=== PATIENT | female | born 1930 | race African-American/Black ===

== ENCOUNTER 2017-11-01 10:38 | Observation (INO) | payer MEDICARE, MEDICAID ==
--- NOTE | 2017-11-01 12:12 | RAD ---
AP CHEST: Indication: Altered mental status. Comparison: 07-28-15 FINDINGS: There is stable moderate cardiomegaly. There is mild pulmonary vascular congestion. No confluent airs pace opacity or pleural effusion is evident. No acute osseous abnormality is evident. IMPRESSION: Moderate cardiomegaly with mild pulmonary vascular congestion. POS: [facility]
--- NOTE | 2017-11-01 12:16 | CT ---
CT BRAIN WITHOUT CONTRAST: INDICATIONS: History of altered mental status. COMPARISON: None. FINDINGS: There is moderate chronic small vessel white matter ischemic change. There is mild generalized cereb ral atrophy. The septum pellucidum and third ventricle are midline. The skull and extracranial soft tissues appear within normal limits. There is mild mucosal thickening of the ethmoid air cells. IMPRESSION: 1. No acute intracranial abnormality. 2. Moderate chronic small vessel white matter ischemic change. 3. Age related atrophy. POS: [facility]
[2017-11-01 12:23] LABS: #Lymphocytes 1.4 thou/uL (1.20-3.40); #Monocytes 1.7 thou/uL (0.11-0.59); #Neutrophils 9.7 thou/uL (1.40-6.50); %Basophils 0.2 % (0.0-1.0); %Eosinophils 0.2 % (0.0-10.0); %Lymphocytes 11.1 % (21.0-51.0); %Monocytes 13.5 % (0.0-10.0); Hemoglobin 11.5 g/dL (12.0-16.0); Mean Corpuscular HGB CONC 30.4 g/dL (32.0-36.0); Mean Corpuscular Hemoglobin 24.9 pg (27.0-31.0); Mean Platelet Volume 9.4 fL (7.4-10.4); Platelet Count 226 thou/uL (130-400); RBC Distribution Width 15.4 % (11.5-14.5); Red Blood Cell (RBC) Count 4.62 mill/uL (4.20-5.40); White Blood Cell (WBC) Count 12.9 thou/uL (4.8-10.8)
[2017-11-01 12:25] LABS: PTT 43.9 SEC (22.9-36.1); Prothrombin Time 31.4 SEC (12.0-14.7)
[2017-11-01 12:46] LABS: ALT (SGPT) 18 U/L (8-55); AST (SGOT) 15 U/L (5-34); Albumin 3.9 g/dL (3.4-4.8); Alkaline Phosphatase 76 U/L (40-150); Anion Gap 17 mmol/L (10-20); BUN (Urea Nitrogen) 16 mg/dL (9.8-20.1); Bilirubin, Total 1.3 mg/dL (0.2-1.2); Calc. Creatinine Clearance 0 mL/min (70-130); Calcium 9.8 mg/dL (7.8-10.44); Carbon Dioxide 18 mmol/L (23-31); Chloride 105 mmol/L (98-107); Estimated GFR-MDRD 67; Globulin 4.3 g/dL (2.4-3.5); Glucose 127 mg/dL (83-110); Potassium 3.6 mmol/L (3.5-5.1); Protein, Total 8.2 g/dL (6.0-8.3); Sodium 136 mmol/L (136-145)
--- NOTE | 2017-11-01 12:46 | RAD ---
LEFT WRIST THREE VIEWS: INDICATIONS: Altered mental status. Left wrist pain. FINDINGS: There is diffuse osteopenia. There is chondrocalcinosis within the TFC. There is severe first CMC o steoarthrosis. There is mild STT osteoarthrosis. No acute fracture or subluxation is evident. IMPRESSION: 1. No acute fracture or subluxation. 2. Diffuse osteopenia. 3. Chondrocalcinosis can be seen with calcium pyrophosphate deposition disease. 4. Advanced osteoarthrosis of the first carpometacarpal. POS: [facility]
[2017-11-01 12:47] LABS: Troponin I Less than 0.010 ng/mL (< 0.028)
[2017-11-01 12:49] LABS: Bilirubin Small (Negative); Blood, Urine Small (Negative); Clarity CLEAR (Clear); Glucose, Urine (Dipstick) Negative (Negative); Leukocyte Trace (Negative); Nitrite Negative (Negative); Protein, Urine (Dipstick) 100 mg/dL (Neg-Trace); Specific Gravity, Urine 1.025 (1.002-1.036)
[2017-11-01 12:56] LABS: Bacteria/HPF None Seen HPF (None Seen); Hyaline Casts/LPF 7-10 HYALINE CAST LPF (0-3 Hyaline); Pathc Cast-AUWi Flag 1.74 (0-2.49); Squamous Epithelial 0-3 HPF (0-3); WBC/HPF 0-3 HPF (0-3)
[2017-11-01 13:04] LABS: Digoxin 0.39 ng/mL (0.8-2.0)
[2017-11-01] MEDS ORDERED: Lidocaine 1% PF 5 ML VIAL ONE (16:15)
--- NOTE | 2017-11-01 16:44 | HP ---
PRIMARY CARE PROVIDER: Dav Neves MD CHIEF COMPLAINT: Referred to the [facility] Service by [facility] for al tered mental status and failure to thrive. HISTORY OF PRESENT ILLNESS: The patient states that she is feeling okay now. She states she had primo e aches and pains in her back and shoulder when she first came in. The ER record notes that she was oriented to person and place. With me, she was oriented to person, place and year. EMS had related that her home was filthy and smelled of propane and she was inappropriately dressed. She lives alone , is single and gives me no other history. PAST MEDICAL HISTORY: Hypertension, atrial fibrillation, chronic anticoagulation. CURRENT MEDICATIONS: Digoxin 125 mcg a day, metoprolol 25 mg twice a day, warfarin 3 mg a day, amlod ipine 5 mg a day. ALLERGIES: QUINOLONES/CIPRO. PAST SURGICAL HISTORY: She states she has none, has never had surgery, however, history and physical by Dr. Fatou Torres 2 years ago notes that she has had a hysterectomy. FAMILY HISTORY: Both parents , both parents had strokes and hypertension. Her mother had co ronary artery disease. 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 No tobacco since she was young. No alcohol, no illicit drugs. REVIEW OF SYSTEMS: She denies any fever, chills, sweats, dizziness, fainting, headache. Eyes: She wears glasses. No double vision, blurred vision, flashing lights. Ear, Nose and Throat: No ear talya n or drainage. No nasal bleeding. No trouble swallowing. Cardiac: No chest pain, orthopnea or par oxysmal nocturnal dyspnea. Respiratory: No cough, wheezing or asthma. Gastrointestinal: No nausea , vomiting, diarrhea, melena. Genitourinary: No hematuria, dysuria. Neurologic: No history of str okes, seizures. Psychiatric: No history of anxiety, depression. Skin: No history of bruises, blee ding or rash. Heme/Lymph: No tender or swollen lumps under skin, under arms, neck, or groin. PHYSICAL EXAMINATION: HEME/LYMPH: She appears sleepy, but easily aroused. As I said before, oriented. VITAL SIGNS: Blood pressure 157/76, pulse 91, respirations 22. Pain on admission to the ER was 8. She says she has no pain now. O2 sat is 95 on room air. HEAD, EYES, EARS, NOSE AND THROAT: Reveal pupils equal and round. She has bilateral arcus, sclerae white. Extraocular movements are intact. Tympanic membranes are clear. Nose is clear. Oral mucous membranes are wet with multiple missing teeth, especially uppers. NECK: No jugular venous distention, adenopathy or thyromegaly. CHEST: Clear to auscultation and percussion. HEART: Had regular rate and rhythm. No murmurs, no gallops were appreciated. ABDOMEN: Soft, bowel sounds are normal. There is no hepatosplenomegaly, no mass, no rebound, no bru its. EXTREMITIES: Reveal no cyanosis, clubbing or edema. PULSES: Carotid, radial, femoral, and dorsalis pedis pulses intact. SKIN: Warm and dry. No bruises. No rash. HEME/LYMPH: No tender or swollen lymph nodes in the axilla, inguinal, or cervical area. NEUROLOGIC: Cranial nerves II-XII are intact. Moves all extremities. Deep tendon reflexes symmetri c. Toes are downgoing. EKG reveals atrial fibrillation with some nonspecific ST-T abnormality, reviewed by me. Chest x-ray reveals no infiltrate, CHF or cardiomegaly, reviewed by me. CT scan of the brain reveals no acute intracranial abnormality, reviewed by me. LABORATORY AND X-RAY FINDINGS: INR is 3.0. Urine has 4-6 red cells, 0-3 white cells. Complete meta bolic profile shows a C-reactive protein of 1807. BNP of 224, bilirubin 1.3, AST 15, ALT 18. Basic metabolic profile shows only CO2 of 18. CBC had a mild elevation of white count of 12.9, hemoglobin 11.5, platelet count 226,000. ADMITTING DIAGNOSES: 1. Altered mental status. 2. Aches and pains. 3. Atrial fibrillation. 4. Hypertension. 5. Chronic anticoagulation, therapeutic. PLAN: CBC and basic metabolic profile will be repeated in the morning. Blood and urine cultures hav e been drawn. Rocephin has been started. She will be placed in the hospital on observation basis.
[2017-11-01 19:15] LABS: Body Fluid Source SYNOVIAL FLUID; Tube # 1
[2017-11-01 19:16] LABS: BF Color Yellow; Clarity Cloudy/Turbid (Clear)
[2017-11-01 19:17] LABS: RBC Background Count 0.003
[2017-11-01 19:18] LABS: RBC Count-Automated 27000 /cumm; WBC/NonHematic-Auto 21600 /cumm
[2017-11-01 20:21] LABS: BF Segmented Neutrophils 90 %; Cell Count Non Hematic 8 %; Lymphocytes 1 %
[2017-11-01] MEDS ORDERED: Ondansetron ODT 4 MG TAB SL PRN (20:22)
[2017-11-01] MEDS ORDERED: Acetaminophen 325 MG TAB PO PRN (20:22)
[2017-11-01] MEDS ORDERED: Ondansetron HCl/PF 4 MG/2 ML Vial IVP PRN ×2 (20:22→20:30)
[2017-11-01 20:39] VITALS: BMI 23.8
[2017-11-01] MEDS: cefTRIAXone\\ROCEPHIN 1 GM in Sodium Chloride 0.9% 100 ML IVPB SCH (23:45)
[2017-11-01] MEDS: Sodium Chloride 0.9% 1,000 ML IV SCH (23:46)
[2017-11-02 08:13] LABS: #Lymphocytes 1.2 thou/uL (1.20-3.40); #Monocytes 1.4 thou/uL (0.11-0.59); #Neutrophils 8.4 thou/uL (1.40-6.50); %Basophils 0.3 % (0.0-1.0); %Eosinophils 0.1 % (0.0-10.0); %Lymphocytes 10.5 % (21.0-51.0); %Monocytes 12.4 % (0.0-10.0); %Neutrophils 76.8 % (42.0-75.0); Hemoglobin 11.1 g/dL (12.0-16.0); Mean Corpuscular HGB CONC 32.4 g/dL (32.0-36.0); Mean Corpuscular Hemoglobin 26.4 pg (27.0-31.0); Mean Corpuscular Volume 81.6 fL (78.0-98.0); Mean Platelet Volume 9.1 fL (7.4-10.4); Platelet Count 261 thou/uL (130-400); RBC Distribution Width 15.2 % (11.5-14.5); Red Blood Cell (RBC) Count 4.22 mill/uL (4.20-5.40); White Blood Cell (WBC) Count 10.9 thou/uL (4.8-10.8)
[2017-11-02 08:30] LABS: Anion Gap 13 mmol/L (10-20); BUN (Urea Nitrogen) 11 mg/dL (9.8-20.1); Calc. Creatinine Clearance 51 mL/min (70-130); Calcium 8.7 mg/dL (7.8-10.44); Carbon Dioxide 20 mmol/L (23-31); Chloride 106 mmol/L (98-107); Estimated GFR-MDRD 90; Glucose 95 mg/dL (83-110); Sodium 136 mmol/L (136-145)
[2017-11-02] MEDS: Sodium Chloride 0.9% 1,000 ML IV SCH ×2 (08:30→18:26)
[2017-11-02] MEDS: Acetaminophen 325 MG TAB PO PRN (08:30)
--- NOTE | 2017-11-02 08:46 | PDOC.PN ---
- Subjective Encounter Start Date: 11/02/17 Encounter Start Time: 08:44 Subjective: alert, oriented, aches and pains - Objective Resuscitation Status: Resuscitation Status FULL:Full Resuscitation MAR Reviewed: Yes Vital Signs & Weight: Vital Signs (12 hours) Temp Pulse Resp BP BP Pulse Ox 11/02/17 08:00 100.3 F H 101 H 18 136/65 100 11/02/17 04:00 98.9 F 96 16 142/67 H 100 11/01/17 22:30 98 F 85 18 155/67 H 100 Weight Weight 134 lb Result Diagrams: 11/02/17 07:59 11/02/17 07:59 Phys Exam - Physical Examination Neck: no JVD Respiratory: clear to auscultation bilateral Cardiovascular: RRR, no significant murmur Gastrointestinal: soft, positive bowel sounds Musculoskeletal: no edema Dx/Plan (1) Altered mental state Code(s): R41.82 - ALTERED MENTAL STATUS, UNSPECIFIED Status: Acute Qualifiers: Altered mental status type: unspecified Qualified Code(s): R41.82 - Altered mental status, unspecified (2) Leukocytosis Code(s): D72.829 - ELEVATED WHITE BLOOD CELL COUNT, UNSPECIFIED Status: Acute Qualifiers: Leukocytosis type: unspecified Qualified Code(s): D72.829 - Elevated white blood cell count, unspecified (3) Atrial fibrillation with controlled ventricular response Code(s): I48.91 - UNSPECIFIED ATRIAL FIBRILLATION Status: Chronic (4) Chronic anticoagulation Code(s): Z79.01 - CLAIM MANAGER (CURRENT) USE OF ANTICOAGULANTS Status: Chronic (5) HTN (hypertension) Code(s): I10 - ESSENTIAL (PRIMARY) HYPERTENSION Status: Chronic Qualifiers: Hypertension type: essential hypertension Qualified Code(s): I10 - Essential (primary) hypertension - Plan alert, oriented -: low grade tomas, cultures pending, cont rocephin -: cont home meds * .
[2017-11-02] MEDS ORDERED: Enoxaparin Sodium 40 MG/0.4 ML SYRINGE SC SCH (09:00)
[2017-11-02] MEDS ORDERED: Prevnar 13-Val Conj/PF 0.5 ML SYRINGE IM ONE (09:00)
[2017-11-02] MEDS ORDERED: Warfarin Sodium 3 MG TAB PO SCH ×2 (09:00→17:00)
[2017-11-02] MEDS: Digoxin 0.125 MG TAB PO SCH (11:09)
[2017-11-02] MEDS: Amlodipine 5 MG TAB PO SCH (11:10)
[2017-11-02] MEDS: cefTRIAXone\\ROCEPHIN 1 GM in Sodium Chloride 0.9% 100 ML IVPB SCH (21:19)
[2017-11-03] MEDS: Sodium Chloride 0.9% 1,000 ML IV SCH (03:02)
[2017-11-03 07:53] VITALS: TEMP 99.2
[2017-11-03] MEDS: Digoxin 0.125 MG TAB PO SCH (08:42)
[2017-11-03] MEDS: Amlodipine 5 MG TAB PO SCH (08:42)
[2017-11-03] MEDS: Acetaminophen 325 MG TAB PO PRN (08:43)
--- NOTE | 2017-11-03 08:54 | PDOC.PN ---
- Subjective Encounter Start Date: 11/03/17 Encounter Start Time: 08:52 Subjective: alert, oriented , aches in shoulders - Objective Resuscitation Status: Resuscitation Status FULL:Full Resuscitation Vital Signs & Weight: Vital Signs (12 hours) Temp Pulse Resp BP BP Pulse Ox 11/03/17 08:42 98 148/67 H 11/03/17 07:27 99.2 F 98 20 148/67 H 100 11/03/17 04:00 97.8 F 80 20 135/81 100 Weight Weight 134 lb 9.6 oz I&O: 11/02/17 11/03/17 11/04/17 06:59 06:59 06:59 Intake Total 3116 Output Total 200 Balance 2916 Result Diagrams: 11/02/17 07:59 11/02/17 07:59 Phys Exam - Physical Examination Neck: no JVD Respiratory: clear to auscultation bilateral Cardiovascular: RRR, no significant murmur Gastrointestinal: soft, positive bowel sounds Musculoskeletal: no edema Neurological: non-focal Dx/Plan (1) Altered mental state Code(s): R41.82 - ALTERED MENTAL STATUS, UNSPECIFIED Status: Ruled-out Qualifiers: Altered mental status type: unspecified Qualified Code(s): R41.82 - Altered mental status, unspecified (2) Leukocytosis Code(s): D72.829 - ELEVATED WHITE BLOOD CELL COUNT, UNSPECIFIED Status: Resolved Qualifiers: Leukocytosis type: unspecified Qualified Code(s): D72.829 - Elevated white blood cell count, unspecified (3) Atrial fibrillation with controlled ventricular response Code(s): I48.91 - UNSPECIFIED ATRIAL FIBRILLATION Status: Chronic (4) Chronic anticoagulation Code(s): Z79.01 - DATAPOWER DEVELOPER (CURRENT) USE OF ANTICOAGULANTS Status: Chronic (5) HTN (hypertension) Code(s): I10 - ESSENTIAL (PRIMARY) HYPERTENSION Status: Chronic Qualifiers: Hypertension type: essential hypertension Qualified Code(s): I10 - Essential (primary) hypertension - Plan REHAB screen -: C&S neg- DC antibx -: PT/INR pending * .
[2017-11-03 09:12] LABS: INR-International Normal Ratio 2.4; Prothrombin Time 26.5 SEC (12.0-14.7)
--- NOTE | 2017-11-03 11:00 | DIS ---
TRANSFER OF CARE NOTE PRIMARY CARE PROVIDER: Dr. Dav Neves DATE OF ADMISSION: 11/01/2017 DATE OF DISCHARGE: 11/03/2017 DISCHARGE DISPOSITION: Discharged to [facility]. FINAL DIAGNOSES: 1. Suspected altered mental status 2. Unspecified atrial fibrillation. 3. Essential hypertension. 4. 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 DISCHARGE MEDICATIONS: Amlodipine 5 mg a day, warfarin 3 mg a day, metoprolol 25 mg twice a day, dig oxin 0.125 mg a day. ALLERGIES: CIPRO. DIET: Diet as tolerated. CODE STATUS: FULL. PENDING AT THE TIME OF DISCHARGE: Nothing. HOSPITAL COURSE: The patient taken to [facility] for aches and pains according to the p atient. The EMS reported that her living conditions were deplorable. She was transferred to [facility] with a diagnosis of altered mental status and referred to [facility] Hospitalist Service with the glynn arnold. She was oriented when I first saw her, has remained oriented, appropriate. Her studies included a brain CT which demonstrated no acute abnormality. Chest x-ray, no cardiomegaly, CHF or infiltrate. LABORATORY DATA: Initial INR was 3.0, follow up today is 2.4. Initial white count was 12.9, follow up 10.9 with a normal distribution, hemoglobin 11.5, 11.1, platelet count 226,000. Follow up 261,000 . Initial comp metabolic profile abnormalities; bilirubin 1.3, glucose 127, CO2 18. Follow up CO2 2 0. Urine was clear. An aspiration of her knee was done in the emergency room. Cultures from her urine, her knee and bloo d are negative to date. She was initially treated with an antibiotic empirically, which has been dis continued. Aspiration on her knee was done in the emergency room by the emergency room physician. T he patient has had no hot, tender or swollen knee on my exam. She is alert, oriented. Cardiorespira tory exam is normal. She has been accepted under the care of Dr. Dav Neves to the [facility] and is being transferred there at this time. She was continued on her home medicines. She will need PT, OT if possible. She will need serial PT/INR on an every 2-[address] Neves. CONSULTATIONS: No consultations were obtained. PROCEDURES: No procedures were done.
[2017-11-03] MEDS ORDERED: Potassium Chloride 20 MEQ TAB PO SCH (12:15)
[2017-11-03 14:16] VITALS: BP 113/55
== END 2017-11-03 14:10 ==
LOC: ERS 10:38 → T4-A 15:40 → 2NO 22:43
PROVIDERS: ADMIT Internal Medicine; ATTEND Internal Medicine
DX: R41.82 Altered mental status, unspecified (principal); D72.829 Elevated white blood cell count, unspecified; I48.91 Unspecified atrial fibrillation; I10 Essential (primary) hypertension; Z79.01 Long term (current) use of anticoagulants; Z88.1 Allergy status to other antibiotic agents; Z79.899 Other long term (current) drug therapy
CPT/HCPCS: 20610; 36415; 36416; 51701; 70450; 71045; 80048; 80053; 80162; 81003; 81015; 82553; 82945; 83880; 84484; 85025; 85060; 85610; 85652; 85730; 86140; 87040; 87070; 87086; 87205; 89051; 89060; 90471; 90670; 93005; 96360; 96361; 96365; 96372; A4216; A4353; G0009; G0378; G8978-GP-CM; G8979-GP-CK; G8987-GO-CN; G8988-GO-CK; J0696; J1650; J2001; J7050

== ENCOUNTER 2017-11-05 16:48 | Inpatient (IN) | payer MEDICARE, MEDICAID ==
[~2017-11-05 16:48] MED LIST: ISOVUE-370 76%-LOCM 1 ML ONE
[2017-11-05 17:26] LABS: Bilirubin Moderate (Negative); Blood, Urine Small (Negative); Glucose, Urine (Dipstick) Negative (Negative); Leukocyte Negative (Negative); Nitrite Negative (Negative); Protein, Urine (Dipstick) 30 mg/dL (Neg-Trace); Urobilinogen > or = 8.0 mg/dL (0.2-1.0); pH, Urine 6.5 (5.0-9.0)
[2017-11-05 17:27] LABS: Clarity Clear (Clear)
[2017-11-05 17:30] LABS: Bacteria/HPF Rare-Few HPF (None Seen); Hyaline Casts/LPF NONE SEEN LPF (0-3 Hyaline); RBC/HPF 0-3 HPF (0-3); Squamous Epithelial 0-3 HPF (0-3); WBC/HPF 0-3 HPF (0-3)
--- NOTE | 2017-11-05 17:59 | RAD ---
CHEST ONE VIEW: 11/05/17 HISTORY: Altered mental status. COMPARISON: 11/01/17 FINDINGS: The cardiac silhouette is magnified and upper limits of normal in size. Pulmonary vasculature is uppe r limits of normal. Mediastinum is midline with aortic calcification. No lobar consolidation or evide nce of pneumothorax. IMPRESSION: Chronic type findings are stable. No active cardiopulmonary abnormalities are demonstrated. POS: [facility]
[2017-11-05] MEDS ORDERED: Acetaminophen 650 MG Suppository ONE (18:28)
[2017-11-05 18:31] LABS: #Eosinphils 0.1 thou/uL (0.0-0.7); #Lymphocytes 1.7 thou/uL (1.20-3.40); #Monocytes 1.9 thou/uL (0.11-0.59); #Neutrophils 9.9 thou/uL (1.40-6.50); %Basophils 0.1 % (0.0-1.0); %Eosinophils 0.5 % (0.0-10.0); %Lymphocytes 12.4 % (21.0-51.0); %Neutrophils 72.9 % (42.0-75.0); Hemoglobin 11.2 g/dL (12.0-16.0); Mean Corpuscular HGB CONC 32.4 g/dL (32.0-36.0); Mean Corpuscular Hemoglobin 26.3 pg (27.0-31.0); Mean Corpuscular Volume 81.3 fL (78.0-98.0); Mean Platelet Volume 8.2 fL (7.4-10.4); Platelet Count 324 thou/uL (130-400); RBC Distribution Width 15.9 % (11.5-14.5); Red Blood Cell (RBC) Count 4.23 mill/uL (4.20-5.40); White Blood Cell (WBC) Count 13.6 thou/uL (4.8-10.8)
[2017-11-05] MEDS ORDERED: Piperacillin/Tazobactam 4.5 GM VIAL ONE (18:37)
[2017-11-05 18:51] LABS: ALT (SGPT) 64 U/L (8-55); AST (SGOT) 106 U/L (5-34); Albumin 2.9 g/dL (3.4-4.8); Alkaline Phosphatase 174 U/L (40-150); Anion Gap 14 mmol/L (10-20); BUN (Urea Nitrogen) 17 mg/dL (9.8-20.1); Bilirubin, Total 1.9 mg/dL (0.2-1.2); Calc. Creatinine Clearance 0 mL/min (70-130); Calcium 9.1 mg/dL (7.8-10.44); Carbon Dioxide 23 mmol/L (23-31); Chloride 103 mmol/L (98-107); Estimated GFR-MDRD 85; Globulin 4.2 g/dL (2.4-3.5); Glucose 142 mg/dL (83-110); Potassium 3.7 mmol/L (3.5-5.1); Protein, Total 7.1 g/dL (6.0-8.3); Sodium 136 mmol/L (136-145)
--- NOTE | 2017-11-05 19:11 | CT ---
CT CHEST WITH IV CONTRAST CT ABDOMEN AND PELVIS WITH IV CONTRAST 11/05/17 HISTORY: Fever. Tachypnea. Chest and abdomen pain. COMPARISON: 07/28/15. FINDINGS: Mild scarring at the lung bases. Bovine origin of the great vessels at the aortic arch. No mediastina l adenopathy. No focal parenchymal lung infiltrate. Small hiatal hernia. Calcification within the art erial structures. Postoperative changes at the central mesentery. Nonspecific lymph nodes are scatter ed throughout the abdomen. Urinary bladder is unremarkable. Lack of oral contrast limits evaluation of the bowel. No evidence of obstruction. Prominent degenerat jacque changes lumbar spine. IMPRESSION: Atherosclerosis. Incidental type findings as detailed above. No acute abnormalities are demonstrated to explain the patient's symptoms. POS: [facility]
[2017-11-05 20:00] LABS: Digoxin 0.73 ng/mL (0.8-2.0)
--- NOTE | 2017-11-05 20:58 | ULT ---
SONOGRAM RIGHT UPPER QUADRANT: 11/05/17 HISTORY: Right upper quadrant pain. Abnormal liver function tests. FINDINGS: Gallbladder has a normal appearance without evidence of stones. Common duct is 0.4 cm. Liver unremark able without focal mass or intrahepatic biliary dilatation. No free fluid. IMPRESSION: No significant abnormalities are demonstrated. POS: [facility]
[2017-11-05] MEDS ORDERED: Ondansetron ODT 4 MG TAB SL PRN (22:20)
[2017-11-05] MEDS ORDERED: Ondansetron HCl/PF 4 MG/2 ML Vial IVP PRN (22:20)
[2017-11-05] MEDS ORDERED: Acetaminophen 325 MG TAB PO PRN (22:20)
[2017-11-05 22:53] VITALS: BMI 24.7
[2017-11-05] MEDS ORDERED: traMADol HCl 50 MG TAB PO PRN (23:56)
[2017-11-06] MEDS ORDERED: Bisacodyl 5 MG TAB PO PRN (00:17)
[2017-11-06] MEDS ORDERED: Fleet Enema 133 ML BOT PR PRN (00:17)
[2017-11-06] MEDS ORDERED: Senokot 8.6 MG TAB PO PRN (00:17)
[2017-11-06] MEDS: Acetaminophen 1,000 MG in Premix Bag 1 BAG IVPB PRN ×3 (00:55→21:15)
--- NOTE | 2017-11-06 01:58 | HP ---
CHIEF COMPLAINT: Generalized stiffness and pain. HISTORIAN: The patient's daughter. HISTORY OF PRESENT ILLNESS: This is an 87-year-old female with past medical history of hypertension, atrial fibrillation, history of uterine cancer presenting with chief complaint of generalized weakness and pain. Per patient, on 11/01/2017, the patient was having pain all over and she was not able to turn, move, or get up out of her bed. The patient was then transported to the hospital to be evaluated in the hospital. The patient was worked up and diagnosed with altered mental status, aches and pains, and the patient was discharged on . Now, the patient is being brought back to the hospital due to subjective fevers, generalized muscle aches and pains, and weakness. The family thinks that the patient is having this weakness because the patient probably has a stroke and they are concerned due to this; however, the daughter states that she spoke to a physician who stated that nothing has been found on patient's workup to suggest that the patient has stroke. At this moment, the patient is lying in bed, does not seem to have any complaints. REVIEW OF SYSTEMS: Positive for generalized aches, otherwise as documented in the HPI. All other systems are reviewed and are negative. PAST MEDICAL HISTORY: The patient has past medical history of arrhythmias; atrial fibrillation; hypertension; malignancy, primary site cervical, status post treatment in 2002. FAMILY HISTORY: Reviewed and noncontributory to this visit. PAST SURGICAL HISTORY: Hysterectomy. PSYCHIATRIC HISTORY: There is no previous psychiatric history. SOCIAL HISTORY: The patient denies any alcohol use, smoking, or illicit drug use. ALLERGIES: The patient is allergic to CIPROFLOXACIN, LATEX. MEDICATIONS: The patient is on, 1. Digoxin 125 mcg. 2. Metoprolol tartrate 25 mg. 3. Warfarin 3 mg. 4. Amlodipine 5 mg. PHYSICAL EXAMINATION: VITAL SIGNS: Blood pressure 138/77, pulse 105, respiratory rate is 36, temperature 97, O2 sat 96% on room air. GENERAL: The patient is awake, alert, oriented x2, not in acute distress. The patient is able to speak in full sentences, appears her stated age. HEENT: Normocephalic, atraumatic. Pupils are equally round and reactive to light. Extraocular movements are intact. No scleral icterus. NECK: Supple. Trachea is midline. No tracheal deviation. LUNGS: Clear to auscultation bilaterally. No wheezing, no rales, no rhonchi are appreciated. CARDIOVASCULAR: Positive S1 and S2, tachycardic. ABDOMEN: Bowel sounds are normal. No tenderness, no distention, no pulsatile masses, no peritoneal signs. EXTREMITIES: Upper extremity: The patient has some weakness at the upper extremities, but good pulses at the radial aspect. The patient has some weakness at the lower extremities bilaterally. The patient is not able to lift her lower extremities against gravity. Good dorsalis pulses. NEUROLOGIC: No focal neurologic deficits noted. SKIN: Warm, dry, and intact. PSYCHIATRIC: Awake, alert, oriented x2. Normal affect. EMERGENCY DEPARTMENT COURSE: The patient was given vancomycin and Zosyn, normal saline 1 liter, acetaminophen rectally. IMAGING: CT of the chest showed chronic type findings that are stable. No active cardiopulmonary abnormalities demonstrated. CT abdomen and pelvis showed atherosclerosis, incidental findings of mild scarring at the lung bases, bovine origin of the great vessels at the aortic arch, no acute abnormalities are demonstrated to explain the patient's symptoms. Abdominal ultrasound, no significant abnormalities demonstrated. LABORATORY DATA: WBC 13.6, hemoglobin 11.2, hematocrit 34.4, platelets is 324. Sodium 136, potassium 3.7, chloride 103, carbon dioxide 23, anion gap of 14, BUN 17, creatinine 0.78, glucose 142, lactic acid 1.7, AST 106, ALT 64, T bilirubin 1.9. Urinalysis is negative for nitrite, negative for leukocyte esterase. Digoxin is 0.73. ASSESSMENT AND PLAN: 1. This is an 87-year-old female with multiple comorbidities being admitted to the hospital for generalized aches and weakness, likely due to arthritis. The patient has been started on pain medication. We will follow the patient. We will get palliative consult and we will find outpatient goals of care. 2. Early onset dementia. The patient is currently alert, oriented x2. The patient seems to be very forgetful. Per the family, this is the patient's baseline. 3. Leukocytosis, etiology unclear at this time. We will continue to work the patient up. Currently, all imaging and labs have been negative. We will follow up on morning labs. 4. Atrial fibrillation. We will continue the patient on Coumadin. 5. History of hypertension. We will continue to monitor the patient's blood pressure. 6. History of cervical cancer, currently stable. [facility]
[2017-11-06 06:05] LABS: #Eosinphils 0.2 thou/uL (0.0-0.7); #Lymphocytes 1.4 thou/uL (1.20-3.40); #Monocytes 1.7 thou/uL (0.11-0.59); #Neutrophils 9.3 thou/uL (1.40-6.50); %Basophils 0.1 % (0.0-1.0); %Eosinophils 1.9 % (0.0-10.0); %Monocytes 13.6 % (0.0-10.0); %Neutrophils 73.3 % (42.0-75.0); Hemoglobin 9.6 g/dL (12.0-16.0); Mean Corpuscular HGB CONC 31.3 g/dL (32.0-36.0); Mean Corpuscular Hemoglobin 25.7 pg (27.0-31.0); Mean Corpuscular Volume 82.1 fL (78.0-98.0); Mean Platelet Volume 8.2 fL (7.4-10.4); Platelet Count 287 thou/uL (130-400); RBC Distribution Width 15.4 % (11.5-14.5); Red Blood Cell (RBC) Count 3.74 mill/uL (4.20-5.40); White Blood Cell (WBC) Count 12.6 thou/uL (4.8-10.8)
[2017-11-06 06:06] LABS: ALT (SGPT) 39 U/L (8-55); AST (SGOT) 43 U/L (5-34); Albumin 2.5 g/dL (3.4-4.8); Alkaline Phosphatase 122 U/L (40-150); Anion Gap 11 mmol/L (10-20); BUN (Urea Nitrogen) 14 mg/dL (9.8-20.1); Bilirubin, Total 1.7 mg/dL (0.2-1.2); Calc. Creatinine Clearance 56 mL/min (70-130); Calcium 8.4 mg/dL (7.8-10.44); Carbon Dioxide 21 mmol/L (23-31); Chloride 106 mmol/L (98-107); Estimated GFR-MDRD Greater than 90; Globulin 3.3 g/dL (2.4-3.5); Glucose 120 mg/dL (83-110); Potassium 3.5 mmol/L (3.5-5.1); Protein, Total 5.8 g/dL (6.0-8.3); Sodium 134 mmol/L (136-145)
[2017-11-06] MEDS ORDERED: Heparin 5,000 UNITS/ML VIAL SC SCH (09:00)
[2017-11-06] MEDS: Famotidine/PF 20 mg/2ml Vial SLOW IVP SCH ×2 (09:06→21:05)
[2017-11-06] MEDS: Amlodipine 5 MG TAB PO SCH (09:06)
[2017-11-06] MEDS: Digoxin 0.125 MG TAB PO SCH (09:06)
[2017-11-06] MEDS: Docusate 100 MG CAP PO SCH ×2 (09:06→21:05)
[2017-11-06 15:36] LABS: Hemoglobin 10.6 g/dL (12.0-16.0); Platelet Count 308 thou/uL (130-400)
[2017-11-06] MEDS: Warfarin Sodium 3 MG TAB PO SCH (16:53)
[2017-11-07] MEDS ORDERED: Acetaminophen 325 MG TAB PO PRN (00:13)
[2017-11-07] MEDS ORDERED: Ondansetron ODT 4 MG TAB SL PRN (00:13)
[2017-11-07] MEDS ORDERED: Ondansetron HCl/PF 4 MG/2 ML Vial IVP PRN (00:13)
[2017-11-07] MEDS ORDERED: Acetaminophen 1,000 MG in Premix Bag 1 BAG IVPB PRN (00:15)
[2017-11-07] MEDS ORDERED: Cholestyramine/Aspartame 4 gm Packet PO PRN (00:16)
[2017-11-07 06:03] LABS: Hemoglobin 10.5 g/dL (12.0-16.0); Platelet Count 319 thou/uL (130-400)
[2017-11-07 06:36] LABS: INR-International Normal Ratio 2.8; Prothrombin Time 29.8 SEC (12.0-14.7)
[2017-11-07] MEDS ORDERED: Prevnar 13-Val Conj/PF 0.5 ML SYRINGE IM ONE (09:00)
[2017-11-07] MEDS: Docusate 100 MG CAP PO SCH ×2 (09:04→20:22)
[2017-11-07] MEDS: Amlodipine 5 MG TAB PO SCH (09:04)
[2017-11-07] MEDS: Digoxin 0.125 MG TAB PO SCH (09:04)
[2017-11-07] MEDS: Famotidine/PF 20 mg/2ml Vial SLOW IVP SCH ×2 (09:05→20:21)
--- NOTE | 2017-11-07 15:45 | PDOC.PN ---
- Subjective Encounter Start Date: 11/07/17 Encounter Start Time: 15:35 Subjective: f/u for generalized weakness, AMS after apparently receiving Tylenol #4 -: for fever at the [facility]. Feels fine currently. No new complaints. - Objective Resuscitation Status: Resuscitation Status FULL:Full Resuscitation MAR Reviewed: Yes Vital Signs & Weight: Vital Signs (12 hours) Temp Pulse Resp BP Pulse Ox 11/07/17 11:55 97.4 F L 92 18 126/68 96 11/07/17 07:20 98.5 F 84 16 123/57 L 95 11/07/17 04:50 97.6 F 97 16 154/65 H 96 Weight Weight 135 lb 1.6 oz I&O: 11/06/17 11/07/17 11/08/17 06:59 06:59 06:59 Intake Total 230 862 Balance 230 862 Result Diagrams: 11/07/17 05:14 11/06/17 05:41 Additional Labs: Microbiology 11/07/17 10:28 Stool C. difficile [facility]DH Antigen & Toxins - Final 11/05/17 17:10 Urine Straight Catheter Urine Culture - Final NO GROWTH AT 48 HOURS 11/05/17 18:13 Venous blood - Right Foot Blood Culture - Preliminary NO GROWTH AT 48 HOURS 11/05/17 17:57 Venous blood - Right Hand Blood Culture - Preliminary NO GROWTH AT 48 HOURS Laboratory Tests 11/05/17 11/05/17 11/05/17 18:13 18:13 18:13 WBC 13.6 H INR AST 106 H ALT 64 H Digoxin 0.73 L 11/06/17 11/06/17 11/07/17 05:41 05:41 06:14 WBC 12.6 H INR 2.8 AST 43 H ALT 39 Digoxin Radiology Reviewed by me: Yes (CT Abd/pel - neg for acute process) EKG Reviewed by me: Yes (Tele - A-fib in 60's) Phys Exam - Physical Examination Constitutional: NAD HEENT: PERRLA, sclera anicteric, oral pharynx no lesions Neck: no nodes, no JVD, supple, full ROM Respiratory: no wheezing, no rales, no rhonchi, clear to auscultation bilateral S1, S2 Cardiovascular: no significant murmur, no rub, irregular Gastrointestinal: soft, non-tender, no distention, positive bowel sounds Musculoskeletal: no edema, pulses present Neurological: moves all 4 limbs A x O x 2 Skin: normal turgor, cap refill <2 seconds Dx/Plan (1) Toxic metabolic encephalopathy Code(s): G92 - TOXIC ENCEPHALOPATHY Status: Acute Comment: Likely due to iatrogenic effect of Tylenol #4, resolving (2) Generalized weakness Code(s): R53.1 - WEAKNESS Status: Chronic Comment: Suspect multifactorial given co-morbid status, advanced age, deconditioning and iatrogenic influence (3) Atrial fibrillation with controlled ventricular response Code(s): I48.91 - UNSPECIFIED ATRIAL FIBRILLATION Status: Chronic Comment: Rate-controlled, continue Digoxin and Metoprolol (4) Chronic anticoagulation Code(s): Z79.01 - INTERMEDIATE (CURRENT) USE OF ANTICOAGULANTS Status: Chronic Comment: Continue Coumadin, serial PT/INR (5) HTN (hypertension) Code(s): I10 - ESSENTIAL (PRIMARY) HYPERTENSION Status: Chronic Qualifiers: Hypertension type: essential hypertension Qualified Code(s): I10 - Essential (primary) hypertension Comment: Continue Metoprolol and Norvasc, serial monitoring (6) Leukocytosis Code(s): D72.829 - ELEVATED WHITE BLOOD CELL COUNT, UNSPECIFIED Status: Acute Qualifiers: Leukocytosis type: unspecified Qualified Code(s): D72.829 - Elevated white blood cell count, unspecified Comment: Unclear etiology, improved, repeat CBC in am - Plan 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 in [place] 11/08/17
[2017-11-07] MEDS: Warfarin Sodium 3 MG TAB PO SCH (16:25)
[2017-11-08 05:46] LABS: Band 6 % (5-11); Hemoglobin 11.8 g/dL (12.0-16.0); Lymphocytes 16 % (21-51); MDiff Complete? YES; Mean Corpuscular HGB CONC 31.8 g/dL (32.0-36.0); Mean Corpuscular Hemoglobin 25.7 pg (27.0-31.0); Mean Corpuscular Volume 80.9 fL (78.0-98.0); Mean Platelet Volume 8.4 fL (7.4-10.4); Monocytes 6 % (0-10); Neutrophil 72 % (42-75); PLT Morphology Comment Appears Adequate; Platelet Count 368 thou/uL (130-400); RBC Distribution Width 15.7 % (11.5-14.5); RBC Morphology Normal; Red Blood Cell (RBC) Count 4.59 mill/uL (4.20-5.40); White Blood Cell (WBC) Count 11.8 thou/uL (4.8-10.8)
[2017-11-08 05:52] LABS: INR-International Normal Ratio 2.7; Prothrombin Time 28.7 SEC (12.0-14.7)
[2017-11-08 05:53] LABS: PTT 60.4 SEC (22.9-36.1)
[2017-11-08] MEDS: Digoxin 0.125 MG TAB PO SCH (11:07)
[2017-11-08] MEDS: Amlodipine 5 MG TAB PO SCH (11:07)
[2017-11-08] MEDS: Famotidine/PF 20 mg/2ml Vial SLOW IVP SCH (11:07)
[2017-11-08] MEDS: Docusate 100 MG CAP PO SCH (11:07)
--- NOTE | 2017-11-08 12:01 | DIS ---
DATE OF ADMISSION: 11/05/2017 DATE OF DISCHARGE: 11/08/2017 DISCHARGE DIAGNOSES: 1. Toxic metabolic encephalopathy likely due to Tylenol No.4. 2. Generalized weakness, multifactorial, stable. 3. Atrial fibrillation with controlled ventricular response on chronic anticoagulation with Coumadin . 4. Hypertension, stable. 5. Leukocytosis, improving. CONSULTATIONS: None. PERTINENT LAB AND X-RAY FINDINGS: Basic metabolic profile within normal limits. AST ranged between 43-106, ALT ranged between 39-64, alkaline phosphatase ranged between 122-174, lipase 45, total bilir ubin ranged between 1.7-1.9. CBC showed a white blood cell count ranging between 11.8-13.6, hemoglob in ranged between 9.6-11.8, PT 28.7, INR 2.7 on 11/08/2017. Digoxin level 0.73. Blood cultures x2 d ated 11/05/2017 showed no growth at 48 hours. Urine culture dated 11/05/2017 showed no growth at 48 hours. C. difficile antigen and toxin dated 11/07/2017 negative. Portable chest x-ray dated 018 showed no acute cardiopulmonary process. CT of the chest, abdomen, and pelvis dated 11/05/2017 s howed no acute process. Abdominal ultrasound dated 11/05/2017 showed a common bile duct of 0.4 cm. No evidence of cholelithiasis. HOSPITAL COURSE: The patient was admitted to the telemetry unit after initially presenting with gene ralized weakness, body aches, and altered mentation. The patient apparently treated for questionable fever and body aches with Tylenol No. 4, presenting with metabolic encephalopathy. The patient unde rwent extensive evaluation including metabolic workup and radiographic analysis showing no acute proc ess except for mild leukocytosis. The patient received IV fluids and general supportive measures and discontinuation of psychotropic and sedating medications. The patient rapidly clinically improved w ith avoidance of psychotropic medications. Becoming more alert and interactive during the hospital s zacarias. Telemetry monitoring showed atrial fibrillation with controlled rate. The patient's vital sign s remained stable, routine monitoring. I have examined the patient at the time of discharge and disc ussed followup instructions. The patient overall verbalized understanding and agreement ready for di patyrge on 11/08/2017. DISCHARGE MEDICATIONS: 1. Norvasc 5 mg 1 tablet p.o. daily. 2. Digoxin 0.125 mg p.o. daily. 3. Toprol-XL 25 mg p.o. daily. 4. Coumadin 3 mg p.o. daily. FOLLOWUP: The patient will follow up with Dr. Dav Neves after returning to [facility] in [place], [place]. CONDITION ON DISCHARGE: Stable. ACTIVITY: Ad magda. Rolling walker with standby assistance for ambulation. General fall risk precaut ions. DIET: Regular. DIET: Coumadin prudent and regular. CODE STATUS: FULL. DISPOSITION: Discharged to [facility] in [place], [place] on 11/08/2017.
[2017-11-08 13:29] VITALS: BP 110/57; TEMP 98.1
== END 2017-11-08 14:15 | DRG 93 ==
LOC: ERS 16:48 → 2NO 19:40
PROVIDERS: ADMIT Internal Medicine; ATTEND Internal Medicine
DX: G92 Toxic encephalopathy (principal); T39.1X5A Adverse effect of 4-Aminophenol derivatives, initial encounter; F03.90 Unspecified dementia, unspecified severity, without behavioral disturbance, psychotic disturbance, mood disturbance, and anxiety; I48.91 Unspecified atrial fibrillation; I10 Essential (primary) hypertension; M19.90 Unspecified osteoarthritis, unspecified site; Z85.41 Personal history of malignant neoplasm of cervix uteri; Z79.01 Long term (current) use of anticoagulants; Z88.1 Allergy status to other antibiotic agents; Z91.040 Latex allergy status
CPT/HCPCS: 20610; 36415; 36416; 51701; 70450; 71045; 71260; 74177; 76705; 80048; 80053; 80162; 81003; 81015; 82553; 82945; 83605; 83690; 83880; 84484; 85007; 85014; 85018; 85025; 85027; 85049; 85060; 85610; 85652; 85730; 86140; 87040; 87070; 87086; 87205; 87324; 87449; 89051; 89060; 90471; 90670; 93005; 96361; 96365; 96372; A4216; A4353; G0009; G0378; G8978-GP-CM; G8979-GP-CK; G8981-GP-CL; G8982-GP-CJ; G8987-GO-CN; G8988-GO-CK; G8996-GN-CJ; G8997-GN-CJ; J0131; J0696; J1650; J2001; J2543; J3370; J7050; S0028

== ENCOUNTER 2018-12-26 13:15 | Emergency (ER) | payer MEDICARE, OTHER ==
--- NOTE | 2018-12-26 14:05 | RAD ---
XR Chest 1 View Portable History: Weakness and lethargy Comparison: Radiograph November 05, 2017 Findings: Heart size is enlarged. Small effusions. Mild pulmonary venous congestion. No pneumothorax. No acute osseous abnormality. Impression: Mild decompensated congestive heart failure.
[2018-12-26 14:34] LABS: Hemoglobin 10.6 g/dL (12.0-16.0); Mean Corpuscular HGB CONC 31.6 g/dL (32.0-36.0); Mean Corpuscular Hemoglobin 23.3 pg (27.0-31.0); Mean Corpuscular Volume 73.7 fL (78.0-98.0); Mean Platelet Volume 8.7 fL (7.4-10.4); Platelet Count 397 thou/uL (130-400); RBC Distribution Width 17.4 % (11.5-14.5); Red Blood Cell (RBC) Count 4.54 mill/uL (4.20-5.40); White Blood Cell (WBC) Count 7.1 thou/uL (4.8-10.8)
[2018-12-26 14:55] LABS: Band 31 % (5-11); Eosinophils 2 % (0-10); Hypochromia SLIGHT = 6-15 cells (100X) (0-5/hpf); Lymphocytes 20 % (21-51); MDiff Complete? YES; Microcytosis SLIGHT = 6-15 cells (100X) (0-5/hpf); Monocytes 10 % (0-10); Neutrophil 30 % (42-75); Ovalocytes SLIGHT = 2-5 cells (100X) (0-1/hpf); Platelet Morphology Comment Appears Adequate; Reactive Lymphocytes 7 % (0-10); Schistocytes SLIGHT = 2-5 cells (100X) (0-1/hpf)
[2018-12-26 14:58] LABS: ALT (SGPT) 12 U/L (8-55); AST (SGOT) 14 U/L (5-34); Albumin 3.4 g/dL (3.4-4.8); Alkaline Phosphatase 119 U/L (40-110); Anion Gap 12 mmol/L (10-20); BUN (Urea Nitrogen) 20 mg/dL (9.8-20.1); Bilirubin, Total 0.4 mg/dL (0.2-1.2); Calc. Creatinine Clearance 0 mL/min (70-130); Calcium 8.6 mg/dL (7.8-10.44); Carbon Dioxide 24 mmol/L (23-31); Chloride 108 mmol/L (98-107); Estimated GFR-MDRD 80; Globulin 3.5 g/dL (2.4-3.5); Glucose 95 mg/dL (83-110); Potassium 4.1 mmol/L (3.5-5.1); Protein, Total 6.9 g/dL (6.0-8.3); Sodium 140 mmol/L (136-145)
[2018-12-26] MEDS ORDERED: Acetaminophen 500 MG TAB ONE (15:10)
[2018-12-26] MEDS ORDERED: cefTRIAXone\\ROCEPHIN 1 GM VIAL ONE (16:10)
[2018-12-26 16:13] LABS: Bilirubin Negative (Negative); Blood, Urine Negative (Negative); Glucose, Urine (Dipstick) Negative (Negative); Leukocyte Negative (Negative); Nitrite Negative (Negative); Protein, Urine (Dipstick) 30 mg/dL (Neg-Trace); Urobilinogen 0.2 mg/dL (Less than 2)
[2018-12-26 16:15] LABS: Bacteria/HPF None Seen HPF (None Seen); RBC/HPF 0-3 HPF (0-3); Squamous Epithelial 0-3 HPF (0-3); WBC/HPF 0-3 HPF (0-3)
[2018-12-26 16:17] LABS: Clarity Clear (Clear)
== END 2018-12-26 19:06 ==
LOC: ERS 13:15
DX: R53.1 Weakness (principal); R50.9 Fever, unspecified; I49.9 Cardiac arrhythmia, unspecified; I48.91 Unspecified atrial fibrillation; I10 Essential (primary) hypertension; M10.9 Gout, unspecified; Z87.891 Personal history of nicotine dependence; Z79.01 Long term (current) use of anticoagulants; Z79.899 Other long term (current) drug therapy
CPT/HCPCS: 36415; 51701; 71045; 80053; 81003; 81015; 83880; 84484; 85025; 85610; 87804; 93005; 96361; 96365; J0696

== ENCOUNTER 2018-12-31 16:42 | Outpatient (CLI) | payer MEDICARE, OTHER ==
--- NOTE | 2018-12-31 19:07 | RAD ---
PORTABLE CHEST: HISTORY: Productive cough. COMPARISON: 12/26/2018 FINDINGS: Heart size appears slightly enlarged. The aorta is mildly tortuous. The lungs are clear of infiltrate s. There are no signs of failure. IMPRESSION: Mild cardiomegaly. POS: KEVINH
== END 2018-12-31 16:43 | disposition home or self-care (01) ==
LOC: RAD 16:42
PROVIDERS: ATTEND Physical Medicine & Rehabilitation
DX: R05 Cough (principal); I51.7 Cardiomegaly
CPT/HCPCS: 71045

== ENCOUNTER 2019-01-14 09:38 | Inpatient (IN) | payer MEDICARE ==
[2019-01-14 10:17] LABS: Hemoglobin 10.8 g/dL (12.0-16.0); Mean Corpuscular HGB CONC 30.4 g/dL (32.0-36.0); Mean Corpuscular Hemoglobin 22.9 pg (27.0-31.0); Mean Corpuscular Volume 75.3 fL (78.0-98.0); Mean Platelet Volume 8.9 fL (7.4-10.4); Platelet Count 409 thou/uL (130-400); RBC Distribution Width 18.7 % (11.5-14.5); Red Blood Cell (RBC) Count 4.73 mill/uL (4.20-5.40); White Blood Cell (WBC) Count 11.9 thou/uL (4.8-10.8)
[2019-01-14 10:36] LABS: ALT (SGPT) 32 U/L (8-55); AST (SGOT) 49 U/L (5-34); Alkaline Phosphatase 91 U/L (40-110); Anion Gap 13 mmol/L (10-20); BUN (Urea Nitrogen) 14 mg/dL (9.8-20.1); Bilirubin, Total 1.9 mg/dL (0.2-1.2); Calc. Creatinine Clearance 0 mL/min (70-130); Calcium 8.9 mg/dL (7.8-10.44); Carbon Dioxide 19 mmol/L (23-31); Chloride 110 mmol/L (98-107); Estimated GFR-MDRD 71; Globulin 4.1 g/dL (2.4-3.5); Glucose 175 mg/dL (83-110); Potassium 3.8 mmol/L (3.5-5.1); Protein, Total 7.1 g/dL (6.0-8.3); Sodium 138 mmol/L (136-145)
[2019-01-14 10:40] LABS: Band 1 % (5-11); Burr Cells SLIGHT = 2-5 cells (100X) (0-1/hpf); Elliptocytes SLIGHT = 2-5 cells (100X) (0-1/hpf); Lymphocytes 19 % (21-51); MDiff Complete? YES; Monocytes 15 % (0-10); Neutrophil 62 % (42-75); Platelet Morphology Comment Appears Increased; Reactive Lymphocytes 3 % (0-10); Schistocytes SLIGHT = 2-5 cells (100X) (0-1/hpf); Target Cells SLIGHT = 2-5 cells (100X) (0-1/hpf)
--- NOTE | 2019-01-14 10:59 | RAD ---
RADIOGRAPH CHEST 1 VIEW: DATE: 01/14/2019 HISTORY: 88-year-old female with altered mental status. Concern for aspiration. FINDINGS: The thoracic aorta is tortuous and ectatic. There is no evidence of airspace density, pulmonary edema , or pneumothorax. The lateral costophrenic angles are not effaced. IMPRESSION: 1) No acute pulmonary findings. 2) ectasia of thoracic aorta.
[2019-01-14 11:20] LABS: Bacteria/HPF None Seen HPF (None Seen); Bilirubin Negative (Negative); Blood, Urine 1+ (Negative); Clarity Clear (Clear); Glucose, Urine (Dipstick) Normal (Negative); Leukocyte Negative Leu/uL (Negative); Nitrite Negative (Negative); Protein, Urine (Dipstick) 50 mg/dL (Neg-Trace); Squamous Epithelial 0-3 HPF (0-3); Urobilinogen Normal mg/dL (Less than 2); WBC/HPF 0-3 HPF (0-3)
--- NOTE | 2019-01-14 11:21 | CT ---
HEAD CT WITHOUT CONTRAST: HISTORY: Altered mental status. COMPARISON: 11/01/2017. FINDINGS: Hemorrhage: No intraparenchymal hemorrhage or extra-axial hematoma. Brain parenchyma: Cortical malone-white matter differentiation is preserved. No mass effect or midline shift. Basilar cisterns are patent. Age-appropriate atrophy. Confluent white matter hypodensities due to chronic small vessel ischemic change. Ventricular system: Ventricles and sulci are patent and symmetric. Calvarium: Intact. Sinuses and mastoid air cells: Bilateral ethmoid air cells, right frontal sinus, right sphenoid sinus and bilateral maxillary sinus mucosal thickening. Adequate mastoid air cell aeration. There is blunting of the right fossa of Rosenmuller. IMPRESSION: 1. No acute intracranial process. 2. Sinus disease. 3. Chronic small vessel ischemic changes of the white matter. 4. Blunting of the fossa of Rosenmuller on the right side. Direct visualization of the nasopharynx is recommended. Consider nonemergent ENT consultation. CODE T Transcribed Date/Time: 01/14/2019 11:26 AM
[2019-01-14 11:23] LABS: INR-International Normal Ratio 2.2; PTT 35.8 SEC (22.9-36.1); Prothrombin Time 24.7 SEC (12.0-14.7)
--- NOTE | 2019-01-14 11:26 | CT ---
CT ABDOMEN AND PELVIS HISTORY: Abdominal pain. Dementia. COMPARISON: 07/28/2015, 11/05/2017. Procedure: Multiple contiguous axial images were obtained and a CT of the abdomen and pelvis with IV contrast. C oronal reformats were performed. FINDINGS: Lower Chest: Dependent atelectatic changes. Small right-sided pleural effusion. Vessels: Atherosclerosis of a nonaneurysmal aorta. There is tortuosity of the aorta. Heart: Marked cardiomegaly. No significant pericardial fluid. Calcification of the mitral annulus. Abdomen: Portal vein:Portal vein is patent. Nonspecific central periportal edema. Gallbladder: No calcified gallstones. Normal caliber wall. Liver: within normal limits. Pancreas: within normal limits. Spleen: within normal limits. Adrenals: within normal limits. Kidneys: Symmetric enhancement. No obstructive uropathy. 0.5 cm hypodensity in the upper pole of the left kidney, too small to further characterize Peritoneum: No ascites or free air, no fluid collection. Bowel: Limited evaluation due to the lack of oral contrast administration. No evidence of bowel obstr uction. Ileocecal junction is unremarkable. Normal caliber appendix. Scattered fecal material in a nondistended, nondilated colon. There does appear to be colonic wall thickening with subtle pericolon ic fat stranding involving the entire sigmoid colon. Mesentery and Retroperitoneum: No enlarged mesenteric or retroperitoneal lymph nodes. Abdominal Wall: within normal limits. Pelvis: Reproductive Organs: Surgically absent uterus Pelvis: No mass, lymphadenopathy, free air or free fluid. Bladder: within normal limits. Bones: No lytic or blastic lesions. Anterolisthesis of L4 upon L5 and L3 upon L4 IMPRESSION: 1. Small right-sided effusion with adjacent consolidation of the right lower lobe likely representing atelectasis. Aspiration and/or pneumonia cannot be completely excluded. 2. Bowel wall thickening and adjacent fat stranding involving the entire sigmoid colon. Correlate for a colitis/proctitis. Transcribed Date/Time: 01/14/2019 11:40 AM
[2019-01-14] MEDS ORDERED: Vancomycin HCl 25 MG/ML Oral PO SCH (11:45)
[2019-01-14] MEDS ORDERED: Sodium Chloride 0.9% 1,000 ML IV SCH (14:30)
[2019-01-14 14:33] VITALS: BMI 20.7
--- NOTE | 2019-01-14 14:36 | HP ---
CHIEF COMPLAINT: Altered mental status. HISTORY OF PRESENT ILLNESS: This patient is an 88-year-old female, who presented to this facility in the emergency department on 12/26/2018 with some lethargy, body aches, and was found to be febrile. There was no specific source of infection found. The patient was subsequently admitted to inpatient rehab at [facility]. There the patient subsequently developed diarrhea, had C diff tested and had a positive result. At some point, she was started on Dificid. She had persistent diarrhea in spite of treatment. Today, the patient apparently had some increased lethargy and altered mental status along with some tachycardia noted. The patient was subsequently brought to the emergency department for further evaluation. Here, the patient is noted to have mild tachypnea and was placed on some oxygen and was given one dose of oral vancomycin. REVIEW OF SYSTEMS: Unobtainable given the patient's dementia and mental status. PAST MEDICAL HISTORY: Notable for atrial fibrillation, hypertension, cervical cancer status post treatment in 2002. PAST SURGICAL HISTORY: Hysterectomy. SOCIAL HISTORY: Per record, no history of alcohol, smoking, or drug use. FAMILY HISTORY: Nothing documented in the medical record. The patient unable to contribute any additional history. ALLERGIES: CIPRO AND QUINOLONES. CURRENT MEDICATIONS: 1. Coumadin 3 mg p.o. daily. 2. Claritin 10 mg daily. 3. Colchicine 0.6 mg daily. 4. Digoxin 0.125 mg p.o. daily. 5. Toprol-XL 25 mg daily. 6. Loperamide 2 mg p.r.n. 7. Norvasc 5 mg p.o. daily. PHYSICAL EXAMINATION: VITAL SIGNS: Blood pressure is 125/69, pulse 94, respirations 24, O2 saturation 98% on 1 L nasal cannula. GENERAL APPEARANCE: Age-appropriate female, she is in no distress. She tends to be a bit lethargic. She stays with her eyes closed and does not voluntarily open them to command or stimulus. She has no OP lesions. NECK: Supple and symmetric. HEART: Irregular with no murmurs, gallops, or rubs. LUNGS: Clear to auscultation bilaterally. Good chest wall expansion and air exchange. ABDOMEN: Soft, nontender, and nondistended. Positive bowel sounds, slightly hyperactive. EXTREMITIES: Her feet are cold to touch. Her pulses are diminished. Skin and nails appear to be otherwise generally healthy. PSYCHIATRIC: As above, the patient is lethargic. LABORATORY DATA: White count 11.9, hemoglobin 10.8, platelets 409, 62 neutrophils, 1% bands, 19% lymphocytes, 15% monocytes. INR is 2.2, PTT 35.8. Chemistries notable for chloride 110, CO2 of 19, BUN 14, creatinine is 0.91, glucose 175. Albumin 1.9. AST 49, ALT 32. Urinalysis 1+ blood, 11 to 20 red cells, 0 to 3 white cells. Chest x-ray is negative. Brain CT negative. CT abdomen and pelvis show small right pleural effusion with adjacent consolidation of the right middle lobe, likely representing atelectasis. However, aspiration pneumonia could not be completely excluded. She also has bowel wall thickening and adjacent fat stranding involving the entire sigmoid colon. IMPRESSION AND PLAN: 1. Clostridium difficile colitis. The patient has apparently been on treatment for 15 days now, was on Dificid. Unclear if she was on anything prior to that. We will keep her on p.o. vancomycin. I had discussed this patient with Dr. Cerda on Tuesday and the plan was to get Dr. Kilpatrick involved. I will go ahead and consult him while she is here. 2. Altered mental status with increased lethargy, likely due to infection, possibly some dehydration. We will give some IV fluids and treat the underlying C diff. 3. Atrial fibrillation. Continue with the regular dose of warfarin and monitoring her INR. 4. Hypertension. Continue with the Toprol and Norvasc. 5. History of gout. Continue with colchicine. 6. History of dementia, stable. Job ID: [id number]
[2019-01-14] MEDS ORDERED: Acetaminophen 325 MG Suppository PR PRN (16:07)
[2019-01-14] MEDS: Warfarin Sodium 3 MG TAB PO SCH (16:19)
[2019-01-14] MEDS ORDERED: Iopamidol-370 76% 500 ML 1 ML ONE (16:44)
[2019-01-14] MEDS: Vancomycin HCl 25 MG/ML Oral PO SCH ×2 (17:13→22:04)
[2019-01-14] MEDS ORDERED: Famotidine 20 MG TAB PO SCH (21:00)
[2019-01-15] MEDS: Sodium Chloride 0.9% 1,000 ML IV SCH ×4 (00:35→15:53)
[2019-01-15] MEDS: Vancomycin HCl 25 MG/ML Oral PO SCH ×3 (00:36→17:06)
[2019-01-15 05:31] LABS: INR-International Normal Ratio 2.3; PTT 24.1 SEC (22.9-36.1); Prothrombin Time 25.4 SEC (12.0-14.7)
[2019-01-15 05:55] LABS: Anion Gap 14 mmol/L (10-20); BUN (Urea Nitrogen) 13 mg/dL (9.8-20.1); Calc. Creatinine Clearance 49 mL/min (70-130); Carbon Dioxide 20 mmol/L (23-31); Chloride 111 mmol/L (98-107); Estimated GFR-MDRD Greater than 90; Glucose 108 mg/dL (83-110); Potassium 3.3 mmol/L (3.5-5.1); Sodium 142 mmol/L (136-145)
[2019-01-15 05:56] LABS: Band 6 % (5-11); Hemoglobin 10.1 g/dL (12.0-16.0); Hypochromia SLIGHT = 6-15 cells (100X) (0-5/hpf); Lymphocytes 13 % (21-51); MDiff Complete? YES; Mean Corpuscular HGB CONC 29.8 g/dL (32.0-36.0); Mean Corpuscular Hemoglobin 22.6 pg (27.0-31.0); Mean Corpuscular Volume 75.6 fL (78.0-98.0); Mean Platelet Volume 9.2 fL (7.4-10.4); Monocytes 10 % (0-10); Neutrophil 71 % (42-75); Platelet Count 414 thou/uL (130-400); Platelet Morphology Comment Appears Increased; RBC Distribution Width 18.4 % (11.5-14.5); Red Blood Cell (RBC) Count 4.47 mill/uL (4.20-5.40); White Blood Cell (WBC) Count 10.3 thou/uL (4.8-10.8)
[2019-01-15] MEDS: Amlodipine 5 MG TAB PO SCH (07:34)
[2019-01-15] MEDS: Digoxin 0.125 MG TAB PO SCH ×2 (07:34→09:10)
[2019-01-15] MEDS: Enoxaparin Sodium 40 MG/0.4 ML SYRINGE SC SCH ×2 (07:34→11:57)
[2019-01-15] MEDS: Famotidine 20 MG TAB PO SCH ×2 (07:35→09:11)
--- NOTE | 2019-01-15 14:46 | PDOC.HOSPP ---
- Subjective Encounter Date: 01/15/19 Encounter Time: 14:43 Subjective: Says she is doing well. Denies abdominal pain. - Objective Vital Signs & Weight: Vital Signs (12 hours) Temp Pulse Resp BP Pulse Ox 01/15/19 11:35 97.6 F 103 H 16 120/66 98 01/15/19 09:10 103 H 01/15/19 08:43 109/64 01/15/19 08:42 100 01/15/19 08:00 98.2 F 103 H 16 100/61 100 01/15/19 05:00 98.1 F 101 H 18 117/66 99 Weight Admit Weight 124 lb 4 oz Weight 124 lb 4 oz Result Diagrams: 01/15/19 05:08 01/15/19 05:08 Hospitalist ROS - Medication Medications: Active Medications Generic Name Dose Route Start Last Admin Trade Name Freq PRN Reason Stop Dose Admin Acetaminophen 325 mg 01/14/19 16:07 01/14/19 16:56 Tylenol NV 325 mg Q4H PRN Administration Headache/Fever or Pain Amlodipine Besylate 5 mg 01/15/19 09:00 01/15/19 07:34 Norvasc PO Not Given DAILY DANIELLE Colchicine 0.6 mg 01/15/19 09:00 01/15/19 07:34 Colchicine PO Not Given DAILY DANIELLE Digoxin 0.125 mg 01/15/19 09:00 01/15/19 09:10 Lanoxin PO 0.125 mg DAILY DANIELLE Administration Enoxaparin Sodium 40 mg 01/15/19 09:00 01/15/19 11:57 Lovenox SC 40 mg 0900 DANIELLE Administration Famotidine 20 mg 01/15/19 09:00 01/15/19 09:11 Pepcid PO 20 mg QAM DANIELLE Administration Sodium Chloride 1,000 mls @ 75 mls/hr 01/14/19 13:45 01/15/19 11:58 Normal Saline 0.9% IV 1,000 mls .[id number] DANIELLE Administration Metoprolol Succinate 25 mg 01/15/19 09:00 01/15/19 07:35 Toprol Xl PO Not Given DAILY DANIELLE Warfarin Sodium 3 mg 01/14/19 17:00 01/14/19 16:19 Coumadin PO Not Given 1700 DANIELLE - Exam General Appearance: NAD, awake alert Heart: no murmur, irregular Respiratory: CTAB, no wheezes, no rales, no ronchi, normal chest expansion, no tachypnea, normal percussion Gastrointestinal: soft, non-tender, non-distended, normal bowel sounds, no palpable masses, no hepatomegaly, no splenomegaly, no bruit Skin: normal turgor Musculoskeletal: normal tone Psychiatric: not oriented, lethargic Psychiatric - other findings: More awake than yesterday. Hosp A/P (1) Clostridium difficile colitis Code(s): A04.72 - ENTEROCOLITIS D/T CLOSTRIDIUM DIFFICILE, NOT SPCF RECUR Status: Acute (2) Toxic metabolic encephalopathy Code(s): G92 - TOXIC ENCEPHALOPATHY Status: Acute (3) Atrial fibrillation with controlled ventricular response Code(s): I48.91 - UNSPECIFIED ATRIAL FIBRILLATION Status: Chronic (4) Chronic anticoagulation Code(s): Z79.01 - SKILLED NURSING (CURRENT) USE OF ANTICOAGULANTS Status: Chronic (5) HTN (hypertension) Code(s): I10 - ESSENTIAL (PRIMARY) HYPERTENSION Status: Chronic Qualifiers: - Plan Seems to be doing a little better. Dr. Kilpatrick increased dose of the vanco. Continue po vanc. Mentation improved. Continue to monitor temperature.
--- NOTE | 2019-01-15 16:57 | CON ---
DATE OF CONSULTATION: 01/15/2019 REASON FOR CONSULTATION: Fever. HISTORY OF PRESENT ILLNESS: An 88-year-old, whom I had recently evaluated at [facility] when she presented with a history of atrial fibrillation, cardiomyopathy, hypertension, and generalized weakness on December 26, as well as low-grade temperature elevation. She was transferred to [facility] directly. A chest x-ray done had shown mild CHF. Influenza test was negative. Symptoms were initially blamed on a viral illness. She did not have diarrhea initially, but then she developed diarrhea with a positive Clostridium difficile test for antigen and toxin, started on treatment with both oral vancomycin and Dificid with improvement. There was improved consistency of stooling and less frequency. She has significant cognitive issues, and so, the review of systems was not reliable then. I recommended to either continue her on Dificid or vancomycin and complete treatment. I discussed the possibility of recrudescence or recurrence of Clostridium difficile. Unfortunately, the patient has been re-admitted with reported change in mental state, fever, and tachycardia. No headaches. No respiratory symptoms or abdominal pain. She was admitted to [facility] after her temperature was 101.7 in the emergency room. She had mild neutrophilia as well. Since admission, she has had 2 episodes of loose stool, liquidy and yellow in appearance. PAST MEDICAL HISTORY: Cardiomyopathy, ischemic; atrial fibrillation; hypertension; cervical malignancy, in remission; hysterectomy; and recent episode of Clostridium difficile colitis. SOCIAL HISTORY: Resident in a [facility]dc. Former smoker, quit more than 10 years ago. ALLERGIES: CIPROFLOXACIN, UNKNOWN TYPE OF ALLERGY. MEDICATIONS: 1. Tylenol. 2. Norvasc. 3. Colchicine. 4. Lanoxin. 5. Lovenox. 6. Pepcid. 7. Toprol. 8. Warfarin. 9. Vancomycin oral here in the hospital. FAMILY HISTORY: Noncontributory . PHYSICAL EXAMINATION: CURRENT VITAL SIGNS: T-max 101.9 yesterday at 2 p.m. She has been afebrile since. BP 120/66, pulse 103, respirations 16, O2 saturation 98%. SKIN: With a tiny little area of pressure ulceration in the perineal region, presacral area. Peripheral IV access. Voiding in the diaper. LYMPHATICS: No lymphadenopathy. HEENT: Ocular movements are conjugate. No [place] teeth remaining. NECK: Supple. No jugular vein distention. LUNGS: Symmetric, clear breath sounds. HEART: Irregular rate without significant murmurs. No S3 or S4. ABDOMEN: Soft with no distention. Bowel sounds are increased. No guarding. No ascites. No bladder distention. MUSCULOSKELETAL: No joint inflammatory activity. EXTREMITIES: She is able to move extremities, but she is diffusely weak. Plantar responses are flexor. No clonus. Pulses 1+ in dorsalis pedis. NEUROLOGIC: She knows her name, but could not tell me where she was. She had poor recollection of events. REVIEW OF SYSTEMS: Not reliable. LABORATORY DATA: Sodium 138, creatinine 0.91. Bilirubin 1.9, AST 49, albumin 3.0. Urinalysis with 0 to 3 wbc's, 11 to 20 rbc's. White cell count was 11.9 on arrival, now 10.3; hemoglobin 10.8; MCV 75; platelets 409, 62% neutrophils. Abdomen and pelvis CT performed on admission with patent portal vein. Gallbladder, normal. Liver, normal. Spleen, normal. Enhancement noted in kidneys, but no obstructive uropathy. No ascites. Possible colonic wall thickening. Subtle pericolonic fat stranding in the entire sigmoid colon. Chest x-ray, normal. Two sets of blood cultures are pending. ASSESSMENT: Atrial fibrillation with cardiomyopathy, on warfarin; dementia; and recent episode of Clostridium difficile colitis, which appears to have recrudesced. DISCUSSION: The patient does have some clinical findings that are consistent with recurrent Clostridium difficile colitis, which usually will happen in about 20% of cases. Resume vancomycin at increased dosage, 250 q.6 hours, treat for about 2 weeks, and then switch to vancomycin taper. If there is recurrence after that, then fecal matter transplant. Other possibilities include an alternate cause of sigmoid colitis. This appears to be less likely. Extra-intestinal inflammatory process appears to be less likely as well. Urinary retention is not apparent. Job ID: [id number] [facility]
[2019-01-15] MEDS: Warfarin Sodium 3 MG TAB PO SCH (17:06)
[2019-01-16] MEDS: Vancomycin HCl 25 MG/ML Oral PO SCH ×5 (00:50→23:25)
[2019-01-16 06:10] LABS: PTT 44.5 SEC (22.9-36.1)
[2019-01-16 06:17] LABS: INR-International Normal Ratio 2.5; Prothrombin Time 26.6 SEC (12.0-14.7)
[2019-01-16 06:23] LABS: Anion Gap 10 mmol/L (10-20); BUN (Urea Nitrogen) 10 mg/dL (9.8-20.1); Calc. Creatinine Clearance 52 mL/min (70-130); Calcium 8.8 mg/dL (7.8-10.44); Carbon Dioxide 24 mmol/L (23-31); Chloride 110 mmol/L (98-107); Estimated GFR-MDRD Greater than 90; Glucose 122 mg/dL (83-110); Potassium 3.2 mmol/L (3.5-5.1); Sodium 141 mmol/L (136-145)
[2019-01-16] MEDS: Sodium Chloride 0.9% 1,000 ML IV SCH (06:37)
[2019-01-16] MEDS ORDERED: Potassium Chloride 20 MEQ TAB PO SCH (07:00)
[2019-01-16] MEDS: Amlodipine 5 MG TAB PO SCH (09:50)
[2019-01-16] MEDS: Famotidine 20 MG TAB PO SCH (09:50)
[2019-01-16] MEDS: Digoxin 0.125 MG TAB PO SCH (09:51)
[2019-01-16] MEDS: Enoxaparin Sodium 40 MG/0.4 ML SYRINGE SC SCH (09:51)
[2019-01-16] MEDS: Acetaminophen 325 MG TAB PO PRN ×2 (09:57→20:01)
[2019-01-16 13:51] LABS: Digoxin 0.37 ng/mL (0.8-2.0)
--- NOTE | 2019-01-16 17:16 | PDOC.HOSPP ---
- Subjective Subjective: Doing a little better. Nurses indicates she had pain with moving her, but not abdominal pain. She told me the joints in her hand hurt. - Objective Vital Signs & Weight: Vital Signs (12 hours) Temp Pulse Resp BP Pulse Ox 01/16/19 09:51 113 H 01/16/19 09:50 113 H 01/16/19 08:00 99.1 F 111 H 16 117/71 96 Weight Admit Weight 124 lb 4 oz Weight 124 lb 4 oz I&O: 01/15/19 01/16/19 01/17/19 06:59 06:59 06:59 Intake Total 900 600 Balance 900 600 Result Diagrams: 01/15/19 05:08 01/16/19 05:56 Hospitalist ROS - Medication Medications: Active Medications Generic Name Dose Route Start Last Admin Trade Name Freq PRN Reason Stop Dose Admin Acetaminophen 650 mg 01/14/19 13:28 01/16/19 09:57 Tylenol PO 650 mg Q4H PRN Administration Headache/Fever/Mild Pain (1-3) Acetaminophen 325 mg 01/14/19 16:07 01/14/19 16:56 Tylenol NC 325 mg Q4H PRN Administration Headache/Fever or Pain Amlodipine Besylate 5 mg 01/15/19 09:00 01/16/19 09:50 Norvasc PO 5 mg DAILY DANIELLE Administration Colchicine 0.6 mg 01/15/19 09:00 01/16/19 09:51 Colchicine PO 0.6 mg DAILY DANIELLE Administration Digoxin 0.125 mg 01/15/19 09:00 01/16/19 09:51 Lanoxin PO 0.125 mg DAILY DANIELLE Administration Enoxaparin Sodium 40 mg 01/15/19 09:00 01/16/19 09:51 Lovenox SC 40 mg 0900 DANIELLE Administration Famotidine 20 mg 01/15/19 09:00 01/16/19 09:50 Pepcid PO 20 mg QAM DANIELLE Administration Vancomycin HCl 250 mg 01/15/19 18:00 01/16/19 13:24 First Vancomycin PO 250 mg Q6HR DANIELLE Administration Warfarin Sodium 3 mg 01/14/19 17:00 01/15/19 17:06 Coumadin PO 3 mg 1700 DANIELLE Administration - Exam General Appearance: NAD, awake alert Heart: no murmur, no gallops, no rubs, normal peripheral pulses, irregular Respiratory: CTAB, no wheezes, no rales, no ronchi, normal chest expansion, no tachypnea, normal percussion Gastrointestinal: soft, non-tender, non-distended, normal bowel sounds, no palpable masses, no hepatomegaly, no splenomegaly, no bruit Extremities: no cyanosis, no clubbing, no edema Extremities - other findings: Osteoarthropathy of hands, fingers. No acute inflammation. Neurological: no focal deficits Musculoskeletal: generalized weakness Psychiatric: normal behavior Psychiatric - other findings: Teaful talking about her situation. Hosp A/P (1) Clostridium difficile colitis Code(s): A04.72 - ENTEROCOLITIS D/T CLOSTRIDIUM DIFFICILE, NOT SPCF RECUR Status: Acute (2) Toxic metabolic encephalopathy Code(s): G92 - TOXIC ENCEPHALOPATHY Status: Acute (3) Chronic anticoagulation Code(s): Z79.01 - STADIUM MANAGER (CURRENT) USE OF ANTICOAGULANTS Status: Chronic (4) HTN (hypertension) Code(s): I10 - ESSENTIAL (PRIMARY) HYPERTENSION Status: Chronic Qualifiers: (5) Atrial fibrillation with rapid ventricular response Code(s): I48.91 - UNSPECIFIED ATRIAL FIBRILLATION Status: Acute (6) Osteoarthritis Code(s): M19.90 - UNSPECIFIED OSTEOARTHRITIS, UNSPECIFIED SITE Status: Acute - Plan Seems to be doing a little better. Dr. Kilpatrick increased dose of the vanco. Mentation improved. Continue to monitor temperature. Suspect her C diff is stable for discharge. Discussed with CM. She is from a long-term facility and she will go back there. Has some tachycardia. Additional Beta max. Her dig level is low. Will give additional po dosing.
[2019-01-16] MEDS ORDERED: Digoxin 0.25 MG TAB PO SCH (17:30)
[2019-01-16] MEDS: Warfarin Sodium 3 MG TAB PO SCH (17:38)
[2019-01-17] MEDS: Vancomycin HCl 25 MG/ML Oral PO SCH ×4 (05:30→23:47)
[2019-01-17 09:11] LABS: Anion Gap 9 mmol/L (10-20); BUN (Urea Nitrogen) 11 mg/dL (9.8-20.1); Calc. Creatinine Clearance 49 mL/min (70-130); Carbon Dioxide 26 mmol/L (23-31); Chloride 110 mmol/L (98-107); Estimated GFR-MDRD Greater than 90; Glucose 98 mg/dL (83-110); Potassium 3.2 mmol/L (3.5-5.1); Sodium 142 mmol/L (136-145)
[2019-01-17] MEDS: Famotidine 20 MG TAB PO SCH (09:58)
[2019-01-17] MEDS: Amlodipine 5 MG TAB PO SCH (09:58)
[2019-01-17] MEDS: Digoxin 0.125 MG TAB PO SCH (09:58)
[2019-01-17] MEDS: Enoxaparin Sodium 40 MG/0.4 ML SYRINGE SC SCH (09:59)
[2019-01-17] MEDS: Acetaminophen 325 MG TAB PO PRN ×2 (11:49→23:56)
--- NOTE | 2019-01-17 14:11 | PRG ---
DATE OF SERVICE: 01/17/2019 SUBJECTIVE: The patient has been bathed at this time. Still having liquid stool frequently. Complaining of polyarticular pain, which reportedly has been chronic. I think it has been properly diagnosed before. Does not have any cough. No shortness of breath or abdominal pain. No genitourinary symptoms. OBJECTIVE: VITAL SIGNS: Had a temperature 101.2 yesterday at 8 p.m., pulse 90, respirations 16, O2 saturation 97%. SKIN: Without any major skin breakdown. Peripheral IV access noted. She is incontinent. LYMPHATICS: No lymphadenopathy. HEENT: Ocular movements are conjugate. Oral cavity is moist. LUNGS: With basilar crackles in the left side. HEART: S1 and S2. Regular rate. ABDOMEN: Slightly distended. Bowel sounds are increased. EXTREMITIES: Shoulders, knees, and MCP joints appear swollen and somewhat warm to touch, tender on range of motion. LABORATORY DATA: White cell count is down to 10.3, hemoglobin 10.1, platelets 414, 13% lymphocytes, 71% neutrophils. Creatinine 0.71. Bilirubin 1.9, AST 49. Her uric acid in 2017, was elevated at 7.2. ASSESSMENT: 1. Atrial fibrillation with cardiomyopathy, on warfarin. 2. Dementia. 3. Recent episode of Clostridium difficile colitis with persistence of diarrhea. 4. Fever, recurrent. DISCUSSION: The patient's Clostridium difficile colitis does not meet criteria for severity of the episode, and I think we need to ascribe the fever to an alternate diagnosis. In this case, polyarticular gout would be something to consider versus an alternate cause of polyarticular inflammatory arthropathy. We will check repeat uric acid. We will check rheumatoid factor as well, MU. May need colchicine. Job ID: [id number]
[2019-01-17] MEDS ORDERED: Potassium Chloride 20 MEQ TAB PO SCH (14:15)
[2019-01-17] MEDS: Warfarin Sodium 3 MG TAB PO SCH (17:32)
--- NOTE | 2019-01-17 17:36 | PDOC.HOSPP ---
- Subjective Subjective: Doing a little better today. Pain in her joints is a little better. Still has some pain in the right shoulder when trying to move around with it. No abd pain. - Objective Vital Signs & Weight: Vital Signs (12 hours) Temp Pulse Resp BP Pulse Ox 01/17/19 12:39 98.5 F 75 18 112/53 L 98 01/17/19 09:58 90 01/17/19 08:26 98.6 F 90 16 128/69 97 Weight Admit Weight 124 lb 4 oz Weight 124 lb 4 oz I&O: 01/16/19 01/17/19 01/18/19 06:59 06:59 06:59 Intake Total 900 840 480 Balance 900 840 480 Result Diagrams: 01/15/19 05:08 01/17/19 08:25 Hospitalist ROS - Medication Medications: Active Medications Generic Name Dose Route Start Last Admin Trade Name Freq PRN Reason Stop Dose Admin Acetaminophen 650 mg 01/14/19 13:28 01/17/19 11:49 Tylenol PO 650 mg Q4H PRN Administration Headache/Fever/Mild Pain (1-3) Acetaminophen 325 mg 01/14/19 16:07 01/14/19 16:56 Tylenol AR 325 mg Q4H PRN Administration Headache/Fever or Pain Amlodipine Besylate 5 mg 01/15/19 09:00 01/17/19 09:58 Norvasc PO 5 mg DAILY DANIELLE Administration Colchicine 0.6 mg 01/15/19 09:00 01/17/19 10:00 Colchicine PO 0.6 mg DAILY DANIELLE Administration Digoxin 0.125 mg 01/15/19 09:00 01/17/19 09:58 Lanoxin PO 0.125 mg DAILY DANIELLE Administration Enoxaparin Sodium 40 mg 01/15/19 09:00 01/17/19 09:59 Lovenox SC 40 mg 0900 DANIELLE Administration Famotidine 20 mg 01/15/19 09:00 01/17/19 09:58 Pepcid PO 20 mg QAM DANIELLE Administration Metoprolol Succinate 50 mg 01/17/19 09:00 01/17/19 09:58 Toprol Xl PO 50 mg DAILY DANIELLE Administration Sodium Chloride 10 ml 01/16/19 21:00 01/17/19 09:59 Flush - Normal Saline IVF 10 ml Q12HR DANIELLE Administration Vancomycin HCl 250 mg 01/15/19 18:00 01/17/19 17:32 First Vancomycin PO 250 mg Q6HR DANIELLE Administration Warfarin Sodium 3 mg 01/14/19 17:00 01/17/19 17:32 Coumadin PO 3 mg 1700 DANIELLE Administration - Exam General Appearance: NAD, awake alert Neck: supple, symmetric, no JVD, no thyromegaly, no lymphadenopathy, no carotid bruit Heart: RRR, no murmur, no gallops, no rubs, normal peripheral pulses Respiratory: CTAB, no wheezes, no rales, no ronchi, normal chest expansion, no tachypnea, normal percussion Gastrointestinal: soft, non-tender, non-distended, normal bowel sounds, no palpable masses, no hepatomegaly, no splenomegaly, no bruit Extremities: no cyanosis, no clubbing Extremities - other findings: Osteoarthropathy of joints hands/fingers. Mild. No acute inflammation. Musculoskeletal: normal tone, normal strength, no muscle wasting Psychiatric: normal affect, normal behavior Hosp A/P (1) Clostridium difficile colitis Code(s): A04.72 - ENTEROCOLITIS D/T CLOSTRIDIUM DIFFICILE, NOT SPCF RECUR Status: Acute (2) Toxic metabolic encephalopathy Code(s): G92 - TOXIC ENCEPHALOPATHY Status: Resolved (3) Chronic anticoagulation Code(s): Z79.01 - MCFP (CURRENT) USE OF ANTICOAGULANTS Status: Chronic (4) HTN (hypertension) Code(s): I10 - ESSENTIAL (PRIMARY) HYPERTENSION Status: Chronic Qualifiers: (5) Atrial fibrillation with rapid ventricular response Code(s): I48.91 - UNSPECIFIED ATRIAL FIBRILLATION Status: Resolved (6) Osteoarthritis Code(s): M19.90 - UNSPECIFIED OSTEOARTHRITIS, UNSPECIFIED SITE Status: Acute - Plan Seems to be doing a little better. Dr. Kilpatrick increased dose of the vanco. Mentation improved more. Continue to monitor temperature. Recurrent fever last night. Dr. Kilpatrick re-eval'd today. Fever possibly non-infectious. Discussed with CM. She is from a long-term facility and she will go back there. Has some tachycardia. Additional Beta amx has helped. Much improved today. Her dig level is low. Will give additional po dosing.
[2019-01-18] MEDS: Vancomycin HCl 25 MG/ML Oral PO SCH ×3 (05:25→18:42)
[2019-01-18 06:10] LABS: INR-International Normal Ratio 1.4; Prothrombin Time 17.5 SEC (12.0-14.7)
[2019-01-18 08:12] VITALS: BP 119/72; TEMP 98.3
[2019-01-18] MEDS: Amlodipine 5 MG TAB PO SCH (09:13)
[2019-01-18] MEDS: Digoxin 0.125 MG TAB PO SCH (09:13)
[2019-01-18] MEDS: Enoxaparin Sodium 40 MG/0.4 ML SYRINGE SC SCH (09:13)
[2019-01-18] MEDS: Famotidine 20 MG TAB PO SCH (09:14)
[2019-01-18] MEDS: Warfarin Sodium 3 MG TAB PO SCH (17:58)
--- NOTE | 2019-01-19 02:18 | PQF ---
AMIRAH FLORENTINO DAVID R MD [id number] CLINICAL DOCUMENTATION CLARIFICATION FORM: POST DISCHARGE Addendum to original discharge summary date: ____ Late entry note date: __ DATE: 01/19/19 ATTN: Jovanny Mattson Please exercise your independent, professional judgment in responding to the clarification form. Clinical indicators are provided on the bottom of this form for your review Can you please further clarify the diagnosis based on the clinical indicators below? Please check appropriate box(es): [ ] Sepsis due to: ( Clostridium difficile colitis, Pna, UTI, gangrenous gall bladder, etc.) [ ] Severe sepsis with acute organ dysfunction of: (Examples: respiratory failure, encephalopathy, acute kidney failure, other) [ x ] Localized infection without sepsis [ ] Other diagnosis please specify [ ] Unable to determine In addition, please specify: Present on Admission (POA): [ x ] Yes [ ] No [ ] Unable to determine For continuity of documentation, please document condition throughout progress notes and discharge summary. Thank You. CLINICAL INDICATORS - SIGNS / SYMPTOMS / LABS H and P pg.1- the patient has some increased lethargy and along with some tachycardia noted H and P pg.2- altered mental status with increased lethargy, likely due to infection, possible some dehydration ED Provider pg.1- history of encephalopathy Consult 01/15 Dr. Kilpatrick pg.1- fever, temperature 101.7 PN 01/17 pg.4- Dr. Kilpatrick increased dose of the vanco RISK FACTORS Clostridium difficile colitis- H and P pg.1 Dementia- H and P pg.4 Recent episode of clostridium difficile colitis- Consult Dr. Kilpatrick pg.2 Toxic metabolic encephalopathy- PN pg.4 TREATMENTS: Infectious Consult- Dr. Kilpatrick 01/15 Blood Culture- Microbiology 01/14 Vancomycin 250mg PO- MAY 08 IV Fluids- MAY 08 Abdomen/Pelvis CT 01/14 (This form is maintained as a part of the permanent medical record) 2014 [employer]. All Rights Reserved [email or web address] [not provided] MTDD
== END 2019-01-18 19:37 | DRG 371 ==
LOC: ERS 09:38 → T4-B 12:30
PROVIDERS: ADMIT Internal Medicine; ATTEND Internal Medicine
DX: A04.71 Enterocolitis due to Clostridium difficile, recurrent (principal); G92 Toxic encephalopathy; I10 Essential (primary) hypertension; I25.5 Ischemic cardiomyopathy; I48.91 Unspecified atrial fibrillation; M10.9 Gout, unspecified; M19.90 Unspecified osteoarthritis, unspecified site; F03.90 Unspecified dementia, unspecified severity, without behavioral disturbance, psychotic disturbance, mood disturbance, and anxiety; Z90.710 Acquired absence of both cervix and uterus; Z79.01 Long term (current) use of anticoagulants; Z79.02 Long term (current) use of antithrombotics/antiplatelets; Z79.899 Other long term (current) drug therapy; Z85.41 Personal history of malignant neoplasm of cervix uteri; Z87.891 Personal history of nicotine dependence; Z88.1 Allergy status to other antibiotic agents
CPT/HCPCS: 36415; 51701; 70450; 71045; 74177; 80048; 80053; 80162; 81003; 81015; 84550; 85025; 85610; 85730; 87040; 93005; 93010; A4353; J1650; Q9967

== ENCOUNTER 2019-03-19 11:20 | Emergency (ER) | payer MEDICARE, OTHER ==
[2019-03-19 11:56] LABS: #Eosinphils 0.3 thou/uL (0.0-0.7); #Lymphocytes 2.4 thou/uL (1.20-3.40); #Neutrophils 4.4 thou/uL (1.40-6.50); %Basophils 0.5 % (0.0-1.0); %Eosinophils 3.4 % (0.0-10.0); %Lymphocytes 29.1 % (21.0-51.0); %Monocytes 12.6 % (0.0-10.0); %Neutrophils 54.4 % (42.0-75.0); Mean Corpuscular HGB CONC 30.5 g/dL (32.0-36.0); Mean Corpuscular Hemoglobin 21.9 pg (27.0-31.0); Mean Platelet Volume 10.9 fL (7.4-10.4); Platelet Count 327 thou/uL (130-400); Red Blood Cell (RBC) Count 5.03 mill/uL (4.20-5.40); White Blood Cell (WBC) Count 8.1 thou/uL (4.8-10.8)
[2019-03-19 11:58] LABS: INR-International Normal Ratio 1.7; PTT 35.2 SEC (22.9-36.1); Prothrombin Time 19.8 SEC (12.0-14.7)
--- NOTE | 2019-03-19 12:08 | CT ---
CT BRAIN NONCONTRAST: DATE: 03/19/2019 HISTORY: 88-year-old female with dysarthria and dizziness. FINDINGS: There is no evidence of acute intra-axial or extra-axial hemorrhage. There is no midline shift or any other mass effect. There is no extra-axial fluid collection. There is no evidence of obstructive hydrocephalus. Calvarium is intact. There is diffuse brain parenchymal volume loss. There are low att enuation areas in the white matter. These are nonspecific, but in a patient of this age, they are probably chronic ischemic white matter changes due to microvascular atherosclerosis. IMPRESSION: 1) No acute intracranial findings. 2) involutional changes and chronic ischemic white matter changes.
[2019-03-19 12:23] LABS: Elliptocytes SLIGHT = 2-5 cells (100X) (0-1/hpf); Hypochromia MODERATE=16-30 cells (100X) (0-5/hpf); MDiff Complete? YES; Microcytosis SLIGHT = 6-15 cells (100X) (0-5/hpf); Platelet Morphology Comment Appears Adequate; Polychromasia SLIGHT = 2-3 cells (100X) (0-2/hpf); Reflex for Review?? NO; Schistocytes SLIGHT = 2-5 cells (100X) (0-1/hpf)
[2019-03-19] MEDS ORDERED: Meclizine HCl 25 MG TAB ONE (13:15)
[2019-03-19 13:37] LABS: ALT (SGPT) 12 U/L (8-55); AST (SGOT) 17 U/L (5-34); Albumin 3.7 g/dL (3.4-4.8); Alkaline Phosphatase 94 U/L (40-110); Anion Gap 12 mmol/L (10-20); BUN (Urea Nitrogen) 19 mg/dL (9.8-20.1); Bilirubin, Total 0.4 mg/dL (0.2-1.2); Calc. Creatinine Clearance 0 mL/min (70-130); Calcium 9.4 mg/dL (7.8-10.44); Carbon Dioxide 24 mmol/L (23-31); Chloride 104 mmol/L (98-107); Estimated GFR-MDRD 82; Globulin 4.2 g/dL (2.4-3.5); Glucose 90 mg/dL (83-110); Potassium 3.9 mmol/L (3.5-5.1); Protein, Total 7.9 g/dL (6.0-8.3); Sodium 136 mmol/L (136-145)
== END 2019-03-19 15:28 ==
LOC: ERS 11:20
DX: Z00.00 Encounter for general adult medical examination without abnormal findings (principal); I48.91 Unspecified atrial fibrillation; I10 Essential (primary) hypertension; M10.9 Gout, unspecified; Z87.891 Personal history of nicotine dependence
CPT/HCPCS: 36415; 70450; 80053; 85025; 85610; 85730; 93005; J8597

== ENCOUNTER 2019-03-23 11:05 | Emergency (ER) | payer MEDICARE, OTHER ==
[2019-03-23 12:03] LABS: Bilirubin Negative (Negative); Blood, Urine Large (Negative); Glucose, Urine (Dipstick) Negative (Negative); Leukocyte Large (Negative); Nitrite Negative (Negative); Protein, Urine (Dipstick) 30 mg/dL (Neg-Trace); Urobilinogen 0.2 mg/dL (Less than 2)
[2019-03-23 12:11] LABS: #Basophils 0.1 thou/uL (0.0-0.2); #Eosinphils 0.2 thou/uL (0.0-0.7); #Neutrophils 4.1 thou/uL (1.40-6.50); %Basophils 0.9 % (0.0-1.0); %Eosinophils 2.4 % (0.0-10.0); %Monocytes 14.2 % (0.0-10.0); %Neutrophils 55.5 % (42.0-75.0); Hemoglobin 10.7 g/dL (12.0-16.0); Mean Corpuscular HGB CONC 29.9 g/dL (32.0-36.0); Mean Corpuscular Hemoglobin 21.9 pg (27.0-31.0); Mean Corpuscular Volume 73.3 fL (78.0-98.0); Mean Platelet Volume 10.3 fL (7.4-10.4); Platelet Count 307 thou/uL (130-400); RBC Distribution Width 17.9 % (11.5-14.5); Red Blood Cell (RBC) Count 4.88 mill/uL (4.20-5.40); White Blood Cell (WBC) Count 7.3 thou/uL (4.8-10.8)
[2019-03-23 12:11] LABS: Clarity Cloudy (Clear)
[2019-03-23 12:13] LABS: INR-International Normal Ratio 2.2; PTT 38.1 SEC (22.9-36.1); Prothrombin Time 24.1 SEC (12.0-14.7)
[2019-03-23 12:17] LABS: Bacteria/HPF 2+ HPF (None Seen); Calcium Oxalate Crystals Rare HPF (None Seen); Yeast-Budding Rare HPF (None Seen)
[2019-03-23 12:18] LABS: Band 5 % (5-11); Elliptocytes SLIGHT = 2-5 cells (100X) (0-1/hpf); Eosinophils 2 % (0-10); Hypochromia MODERATE=16-30 cells (100X) (0-5/hpf); Lymphocytes 34 % (21-51); MDiff Complete? YES; Microcytosis SLIGHT = 6-15 cells (100X) (0-5/hpf); Monocytes 10 % (0-10); Neutrophil 48 % (42-75); Ovalocytes SLIGHT = 2-5 cells (100X) (0-1/hpf); Platelet Morphology Comment Appears Adequate; Polychromasia SLIGHT = 2-3 cells (100X) (0-2/hpf)
--- NOTE | 2019-03-23 12:20 | CT ---
CT BRAIN WITHOUT CONTRAST: Date: 03/23/2019 HISTORY: Facial droop. COMPARISON: CT brain dated 03/19/2019. FINDINGS: Moderate atrophy. No acute hemorrhage. No territorial infarct. No midline shift. No mass effect. Calv arium is intact. Paranasal sinuses and mastoids are clear. IMPRESSION: No acute intracranial abnormality, nor significant change from 03/19/2019. POS: OFF
[2019-03-23 12:30] LABS: ALT (SGPT) 11 U/L (8-55); AST (SGOT) 19 U/L (5-34); Albumin 3.7 g/dL (3.4-4.8); Alkaline Phosphatase 91 U/L (40-110); Anion Gap 15 mmol/L (10-20); BUN (Urea Nitrogen) 19 mg/dL (9.8-20.1); Bilirubin, Total 0.4 mg/dL (0.2-1.2); Calc. Creatinine Clearance 0 mL/min (70-130); Calcium 9.4 mg/dL (7.8-10.44); Carbon Dioxide 20 mmol/L (23-31); Chloride 106 mmol/L (98-107); Estimated GFR-MDRD 81; Globulin 4.4 g/dL (2.4-3.5); Glucose 93 mg/dL (83-110); Potassium 4.3 mmol/L (3.5-5.1); Protein, Total 8.1 g/dL (6.0-8.3); Sodium 137 mmol/L (136-145)
[2019-03-23] MEDS ORDERED: Lidocaine 1% PF 5 ML VIAL ONE (12:51)
[2019-03-23] MEDS ORDERED: cefTRIAXone\\ROCEPHIN 1 GM VIAL ONE (12:51)
== END 2019-03-23 13:30 ==
LOC: ERS 11:05
DX: G45.9 Transient cerebral ischemic attack, unspecified (principal); N39.0 Urinary tract infection, site not specified; I49.9 Cardiac arrhythmia, unspecified; I48.91 Unspecified atrial fibrillation; I10 Essential (primary) hypertension; Z87.891 Personal history of nicotine dependence
CPT/HCPCS: 36415; 70450; 80053; 81003; 81015; 85025; 85610; 85730; 87086; 93005; 94760; 96372; J0696; J2001

== ENCOUNTER 2019-04-26 12:37 | Outpatient (CLI) | payer MEDICARE, MEDICAID ==
--- NOTE | 2019-04-26 13:37 | ULT ---
EXAM: Carotid Doppler PROVIDED CLINICAL HISTORY: TIA COMPARISON: None FINDINGS: Grayscale and color Doppler sonography with spectral analysis was performed of the extracranial carot id system bilaterally. There is no evidence for a hemodynamically significant internal carotid artery stenosis by peak systolic velocity or ratio criteria. Antegrade flow is seen in the vertebral arteries. Nonspecific subcentimeter left thyroid lobe nodule measuring about 4 mm. IMPRESSION: No sonographic evidence for a hemodynamically significant internal carotid artery stenosis.
== END 2019-04-26 12:38 | disposition home or self-care (01) ==
LOC: ULT 12:37
PROVIDERS: ATTEND Family Medicine
DX: I65.23 Occlusion and stenosis of bilateral carotid arteries (principal); I49.9 Cardiac arrhythmia, unspecified; I48.91 Unspecified atrial fibrillation; I10 Essential (primary) hypertension; I08.3 Combined rheumatic disorders of mitral, aortic and tricuspid valves
CPT/HCPCS: 93306; 93880